=== PATIENT | female | born 1970 | race Caucasian/White ===

== ENCOUNTER → 2016-11-27 | Day surgery (SDC) | payer OTHER ==
[~2016-11-27] MED LIST: BUPIVACAINE/EPINEPHRINE 0.5% PF 30 ML VIAL ONE; KETOROLAC TROMETHAMINE 30 MG/ML (IVP) VIAL IV PUSH ONE; LACTATED RINGER'S 1000 ML INJ 1,000 ML ONE; MEPERIDINE HCL 25 MG/ML VIAL ONE; MIDAZOLAM HCL 2 MG/2 ML VIAL ONE; ONDANSETRON HCL 4 MG/2 ML VIAL IV PUSH ONE; PROPOFOL 200 MG/20 ML AMP IV ONE; ceFAZolin INJ 1,000 MG VIAL ONE
--- NOTE | 2016-11-27 14:46 | TN ---
cc: NINFA BARLOW M.D. DATE OF SURGERY: 11/27/2016 PREOPERATIVE DIAGNOSIS 1. Internal derangement of the left knee. 2. Probable anterolateral meniscus tear, left knee. POSTOPERATIVE DIAGNOSIS 1. Internal derangement of the left knee. 2. Anterolateral meniscus tear, left knee. PROCEDURE 1. Arthroscopy, left knee. 2. Arthroscopic lateral meniscectomy, partial. SURGEON Ninfa Barlow ANESTHESIA General. ESTIMATED BLOOD LOSS Minimal. INDICATION This patient is a 46-year-old female with significant anterolateral left knee pain. Investigative study shows evidence of a torn anterolateral meniscus. She presents for surgical treatment. DETAILS OF PROCEDURE The patient was brought to the operating room and anesthetized in the supine position. The left leg was scrubbed with alcohol followed by Hibiclens followed by ChloraPrep and draped sterilely. Antibiotics were given within a one hour time window and a timeout was done. Inflow was established anterior and medially. The knee was inflated. The suprapatellar pouch was unremarkable. There were no loose bodies in either the lateral or medial gutter. The medial compartment showed a normal-appearing meniscus with grade I changes of the medial tibial plateau. The ACL had a slightly abnormal attachment into the femur which may suggest a previous tear. The lateral compartment showed evidence of a portion of the lateral meniscus which was torn in a parrot beak like tear and then tearing back towards the anterior horn. This was flipped back on top of itself. A separate incision was made laterally. Straight and angled punches were used to take the meniscus back to a stable rim. A meniscal debrider was used to shave the rest of this. The meniscus was taken from approximately the 3 o'clock position to the anterior horn. The wound was irrigated copiously. Hemostasis was controlled. The portals were injected with 0.5% Marcaine with epinephrine. The patient was awakened and taken to the recovery room in satisfactory condition. MD WILTON Bess/CADEN /2:15 PM /2:37 PM [facility]
== END | disposition home or self-care (01) ==
LOC: ESDC 11:20
PROVIDERS: ATTEND Orthopaedic Surgery Orthopaedic Surgery of the Spine
DX: S83.282A Other tear of lateral meniscus, current injury, left knee, initial encounter (principal)
CPT/HCPCS: 01400; 29881; J0690; J1885; J2175; J2250; J2405; J3010; J7120